=== PATIENT | female | born 1960 | race Caucasian/White ===

== ENCOUNTER → 2023-04-11 06:20 | Day surgery (SDC) | payer BC, SELFPAY | LOC: GI 06:20 | PROVIDERS: ATTENDING PHYSICIAN Surgery | DX: Z09 Encounter for follow-up examination after completed treatment for conditions other than malignant neoplasm (principal); Z86.010 Personal history of colon polyps; K57.30 Diverticulosis of large intestine without perforation or abscess without bleeding; D12.3 Benign neoplasm of transverse colon; D12.7 Benign neoplasm of rectosigmoid junction; K63.5 Polyp of colon | CPT/HCPCS: 45385; 45381; 45380; 88305 ==

== ENCOUNTER → 2023-09-13 12:34 | Outpatient (REF) | payer BC, SELFPAY | LOC: WDC 12:34 | PROVIDERS: ATTENDING PHYSICIAN Obstetrics & Gynecology Gynecology; FAMILY PHYSICIAN Family Medicine | DX: Z12.31 Encounter for screening mammogram for malignant neoplasm of breast (principal) | CPT/HCPCS: 77063; 77067 ==

== ENCOUNTER 2023-10-24 06:21 | Day surgery (SDC) | payer BC, SELFPAY ==
[2023-10-24 12:27] VITALS: BMI 24.4
[2023-10-24 12:28] VITALS: BMI 24.4
[2023-10-24 12:29] VITALS: BP 152/85
[2023-10-24 15:15] VITALS: BP 106/88
[2023-10-24 15:30] VITALS: BP 131/67
== END 2023-10-24 15:52 | disposition home or self-care (01) ==
LOC: SDS 06:21
PROVIDERS: Surgery; ATTENDING PHYSICIAN Internal Medicine Gastroenterology
PROC: 0DBK8ZX Excision of Ascending Colon, Via Natural or Artificial Opening Endoscopic, Diagnostic (ICD-10-PCS; 2023-10-24)
PROC: 0DBL8ZX Excision of Transverse Colon, Via Natural or Artificial Opening Endoscopic, Diagnostic (ICD-10-PCS; 2023-10-24)
DX: D12.2 Benign neoplasm of ascending colon (principal); K64.0 First degree hemorrhoids; Z87.19 Personal history of other diseases of the digestive system
CPT/HCPCS: 45390; 45385; 88305

== ENCOUNTER 2024-05-14 06:12 | Day surgery (SDC) | payer OTHER, SELFPAY | END 2024-05-14 09:28 | disposition home or self-care (01) | LOC: GI 06:12 | PROVIDERS: ATTENDING PHYSICIAN Surgery | DX: Z12.11 Encounter for screening for malignant neoplasm of colon (principal); K57.30 Diverticulosis of large intestine without perforation or abscess without bleeding; Z86.0101 Personal history of adenomatous and serrated colon polyps | CPT/HCPCS: G0105 ==

== ENCOUNTER → 2024-11-19 13:18 | Outpatient (REF) | payer BC, SELFPAY | LOC: WDC 13:18 | PROVIDERS: ATTENDING PHYSICIAN Obstetrics & Gynecology Gynecology; FAMILY PHYSICIAN Family Medicine | DX: Z12.31 Encounter for screening mammogram for malignant neoplasm of breast (principal) | CPT/HCPCS: 77063; 77067 ==